=== PATIENT | female | born 1990 | race Caucasian/White ===

== ENCOUNTER 2025-11-13 14:51 | Emergency (ER) | payer BC ==
[~2025-11-13] VITALS: Ht 162.6 cm; Wt 63.5 kg
[2025-11-13] MEDS ORDERED: METF750T46 PO (15:12)
[2025-11-13] MEDS ORDERED: diphenhydrAMINE 50 MG/1 ML VIAL ONE (15:42)
[2025-11-13] MEDS ORDERED: METOCLOPRAMIDE HCL 10 MG/2 ML VIAL ONE (15:42)
[2025-11-13] MEDS: IV NS 1000 ML 1,000 ML IV ONE (15:51)
[2025-11-13] MEDS: METOCLOPRAMIDE HCL 10 MG/2 ML VIAL IV ONE (15:51)
[2025-11-13] MEDS: diphenhydrAMINE 50 MG/1 ML VIAL IV ONE (15:51)
[2025-11-13] MEDS ORDERED: KETOROLAC TROMETHAMINE 30 MG INJ ONE ×2 (15:57→16:02)
[2025-11-13 15:58] LABS: CREATININE 0.4 mg/dL (0.6-1.3); SODIUM SERUM 136 mmol/L (136-145); UREA NITROGEN, BLOOD 6 mg/dL (7-18)
[2025-11-13 16:00] LABS: PLATELET COUNT (AUTO) 337 K/uL (179-408); RED BLOOD CELL COUNT(AUTO) 4.54 MIL/uL (3.63-4.92); RED CELL DISTRIBUTION WIDTH 12.9 % (12.3-17.7); WHITE BLOOD COUNT (AUTO) 7.8 K/uL (3.8-11.8)
[2025-11-13] MEDS: KETOROLAC TROMETHAMINE 30 MG INJ IM ONE (16:11)
[2025-11-13 17:00] VITALS: BP 104/54
[2025-11-13] MEDS ORDERED: METO-295 PO (17:34)
[2025-11-13] MEDS ORDERED: HYDR-3980 PO (17:50)
[2025-11-13 18:08] VITALS: BP 104/54; O2SAT 100
== END 2025-11-13 18:08 | disposition home or self-care (01) ==
LOC: ER 14:51
DX: G43.901 Migraine, unspecified, not intractable, with status migrainosus (principal); F17.200 Nicotine dependence, unspecified, uncomplicated; E28.2 Polycystic ovarian syndrome; G89.29 Other chronic pain
CPT/HCPCS: 99285; 96374; 70450; 96361; 96375; 80048; 85025; 36415; 96372; J1885 ×2; J1200; J2765; J7040; A4606; A4663